=== PATIENT | male | born 1950 | race Caucasian/White ===

== ENCOUNTER 2020-12-28 14:25 | Emergency (ER) | payer MEDICARE, OTHER ==
[~2020-12-28] VITALS: Ht 190.5 cm; Wt 92.9 kg
[2020-12-28 14:28] VITALS: BP 157/91
--- NOTE | 2020-12-28 14:37 | ED EENT ---
History of Present Illness General Chief Complaint: Facial Problems Stated Complaint: JAW INJ Nursing Triage Note: Patient reports he was pitching in a softball game and was hit in the jaw by a line drive. History of Present Illness Date Seen by Provider: Dec 28, 2020 Time Seen by Provider: 14:37 Initial Comments 70-year-old male presents with right jaw injury. Patient was playing softball when he was hit by a line drive. He has abrasion laceration to his lip. Pain into his right jaw area. Patient mainly complains of pain along the right mandible. He reports if he opens his mouth it hurts on the left TMJ. He has no difficulty swallowing. Allergies and Home Medications Allergies Coded Allergies: No Known Drug Allergies (Unverified , 12/28/20) Patient Home Medication List Home Medication List Reviewed: Yes Review of Systems Review of Systems Constitutional: see HPI; No chills, No fever Eyes: No Symptoms Reported Ears: No Symptoms Reported Nose: no symptoms reported Mouth: see HPI Respiratory: no symptoms reported Cardiovascular: no symptoms reported Gastrointestinal: no symptoms reported Past Eahoxln-Pryebd-Grdejx Hx Past Med/Social Hx: Reviewed Nursing Past Med/Soc Hx Patient Social History Recent Infectious Disease Expo: No Physical Exam Vital Signs Vital Signs - First Documented 12/28/20 14:28 Temp 36.4 Pulse 91 Resp 16 B/P (MAP) 157/91 (113) Pulse Ox 95 O2 Delivery Room Air Height, Weight, BMI Height: '" Weight: lbs. oz. kg; 25.00 BMI Method: General Appearance: no apparent distress Eyes: bilateral eye normal inspection, bilateral eye PERRL Mouth/Throat: other (Lip with abrasion, laceration and puncture wound that is nonsuturable, tenderness along the right mandible.) Neck: full range of motion, supple Cardiovascular: normal peripheral pulses, regular rate, rhythm Respiratory: lungs clear, normal breath sounds Gastrointestinal: non tender, soft Neurologic/Psychiatric: no motor/sensory deficits, alert, normal mood/affect, oriented x 3 Progress/Results/Core Measures Results/Orders My Orders Orders - SIVA BUCK DO Ct Maxillofacial Wo (12/28/20 14:40) Vital Signs/I&O 12/28/20 14:28 Temp 36.4 Pulse 91 Resp 16 B/P (MAP) 157/91 (113) Pulse Ox 95 O2 Delivery Room Air Blood Pressure Mean: 113 Diagnostic Imaging Diagonstic Imaging: CT Plain Films/CT/US/NM/MRI: facial bones Comments Date of Exam:12/28/20 CT MAXILLOFACIAL WO PROCEDURE: CT maxillofacial without contrast. TECHNIQUE: Multiple contiguous axial images were obtained through the facial bones without the use of intravenous contrast. Auto Exposure Controls were utilized during the CT exam to meet ALARA standards for radiation dose reduction. INDICATION: Right-sided jaw pain and swelling, injury. COMPARISON: None. FINDINGS: The pterygoid plates are intact. The zygomatic arches are intact. The mandible is normal in alignment. There is a linear lucency at the left mandibular ramus which appears to represent a nutrient canal, but on several images has the appearance of a fracture (image 69 series 7). This does not appear to correlate with the site of pain. There is mild rightward deviation of the nasal septum. There is mild mucosal thickening in the left maxillary sinus. The orbits appear intact. The globes are intact. No soft tissue mass or fluid collection is seen. There is a calcification measuring 1.1 cm in length located along the right floor of the mouth. IMPRESSION: 1. Linear lucency in the left mandibular ramus is thought to represent a nutrient canal rather than a fracture; however, recommend correlation with point tenderness. 2. Large sialolith at the right sublingual region. Reviewed: Reviewed by Me, Reviewed/Discussed Departure Impression Primary Impression: Laceration of lower lip Qualified Codes: S01.511A - Laceration without foreign body of lip, initial encounter Additional Impression: Contusion of jawline Qualified Codes: S00.83XA - Contusion of other part of head, initial encounter Disposition: 01 HOME, SELF-CARE Condition: Stable Departure-Patient Inst. Referrals: CONNOR RODRIGUEZ MD (PCP/Family) Primary Care Physician Patient Instructions: Contusion (DC), Mouth and Dental Injuries in Adults Add. Discharge Instructions: Gargle with 50% peroxide and 50% water, Listerine or just water. Tylenol or ibuprofen as needed for pain ice to affected area All discharge instructions reviewed with patient and/or family. Voiced understanding. SIVA BUCK DO Dec 28, 2020 14:37
--- NOTE | 2020-12-28 15:20 | Diagnostic Imaging Report ---
PROCEDURE: CT maxillofacial without contrast. TECHNIQUE: Multiple contiguous axial images were obtained through the facial bones without the use of intravenous contrast. Auto Exposure Controls were utilized during the CT exam to meet ALARA standards for radiation dose reduction. INDICATION: Right-sided jaw pain and swelling, injury. COMPARISON: None. FINDINGS: The pterygoid plates are intact. The zygomatic arches are intact. The mandible is normal in alignment. There is a linear lucency at the left mandibular ramus which appears to represent a nutrient canal, but on several images has the appearance of a fracture (image 69 series 7). This does not appear to correlate with the site of pain. There is mild rightward deviation of the nasal septum. There is mild mucosal thickening in the left maxillary sinus. The orbits appear intact. The globes are intact. No soft tissue mass or fluid collection is seen. There is a calcification measuring 1.1 cm in length located along the right floor of the mouth. IMPRESSION: 1. Linear lucency in the left mandibular ramus is thought to represent a nutrient canal rather than a fracture; however, recommend correlation with point tenderness. 2. Large sialolith at the right sublingual region. Dictated by: Dictated on workstation # [id number]
== END 2020-12-28 15:45 | disposition home or self-care (01) ==
LOC: ER FS 14:27
DX: S01.511A Laceration without foreign body of lip, initial encounter (principal); W21.07XA Struck by softball, initial encounter
CPT/HCPCS: 70486